=== PATIENT | female | born 1935 | race Caucasian/White ===

== ENCOUNTER 2017-03-10 16:12 | Emergency (ER) | payer OTHER ==
[~2017-03-10] VITALS: Ht 162.6 cm; Wt 67.0 kg
[~2017-03-10 16:12] MED LIST: ASPIRIN81 M1 PO; CAL-LAC100 MG PO; CALCIO DEL MAR500 MG PO; CALCIUM 500 +1 EAC1 PO; CELEBREX200 MG PO; CHILDREN'S ASPI81 M1 PO; Ceftin PO; DAILY VALUE1 EACH PO; DELTASONE DOSEPA5 MG PO; FOLIC ACID1 MG PO; FOLVITE1 MG PO; GLIPIZIDE5 MG PO; GLUCOPHAGE XR,500 MG PO; GLUCOPHAGE500 MG PO; GLUCOTROL5 MG PO; Glucotrol XL PO; HYDROCHLOROTHIA25 MG PO; LANOXIN,DIGI0.125 MG PO; LANOXIN125 MCG PO; LEVAQUIN500 MG PO; LIPITOR40 MG PO; LOPRESSOR100 M1 PO; Lactinex,Floranex PO; Levaquin PO; METHOTREXATE2.5 MG PO; MYCELEX10 MG MM; Omnicef PO; PERCOCET 5/31 TABLET PO; PREDNISONE2.5 MG PO; PREDNISONE5 MG PO; PRILOSEC20 MG PO; PRINIVIL20 MG PO; TOPROL XL50 MG PO; Tylenol Regular Stre PO; VITAMIN D5000 UNIT PO; VITAMIN D50000 UNIT PO; ZANTAC150 MG PO; ZOFRAN ODT4 MG PO; ZOFRAN ODT8 MG PO; predniSONE PO
[2017-03-10 18:46] LABS: BASOPHIL COUNT 0.1 K/uL (0-0.1); EOSINOPHIL (%) 0.4 % (0-5); HEMATOCRIT 47.7 % (36.0-46.0); IMMATURE GRANULOCYTE (%) 0.4 % (0.0-0.7); INSTRUMENT ABS NEUTROPHIL CT 7.2 K/uL; LYMPHOCYTE COUNT 1.3 K/uL (1.0-2.8); MCH 32.3 PG (29.0-34.0); MCHC 33.3 G/DL (30.0-36.0); MCV 96.8 FL (83-99); MEAN PLAT.VOLUME 10.7 uM^3 (9.5-12.4); MONOCYTE (%) 8.5 % (3-12); MONOCYTE COUNT 0.8 K/uL (0-0.8); NEUTROPHIL (%) 76.9 % (45-76); NEUTROPHIL COUNT 7.2 K/uL (1.8-6.4); PLATELET COUNT 190 K/uL (156-360); RBC DIS.WIDTH-CV 15.2 % (11.8-14.6); RBC DIS.WIDTH-SD 53.2 % (39-53); RED BLOOD COUNT 4.93 M/uL (3.80-5.20)
[2017-03-10 18:50] LABS: WHITE BLOOD COUNT 9.4 K/uL (4.1-10.2)
[2017-03-10 19:02] LABS: CHLORIDE 98 mEq/L (99-109); POTASSIUM 3.7 mEq/L (3.7-5.4); SODIUM 137 mEq/L (136-147)
[2017-03-10 19:05] LABS: GLUCOSE 120 mg/dL (70-99)
[2017-03-10 19:06] LABS: ANION GAP 14 MEQ/L (2-14)
[2017-03-10 19:08] LABS: ALKALINE PHOSPHATASE 76 IU/L (3-129); GFR ESTIMATE (CALCULATED) 57 mL/min/
[2017-03-10 19:09] LABS: UREA NITROGEN (BUN) 21 mg/dL (9-23)
[2017-03-10 19:12] LABS: LIPASE 37 U/L (1.0-51.0)
[2017-03-10 19:18] LABS: DIGOXIN 0.3 ng/mL (0.8-2.0)
[2017-03-10 19:35] LABS: ADD MIUA? NO; BILIRUBIN NEGATIVE; BLOOD NEGATIVE; COLOR YELLOW ((YELLOW)); GLUCOSE (STRIP) NEGATIVE; KETONES NEGATIVE; LEUKOCYTES NEGATIVE; NITRITE NEGATIVE; PROTEIN (STRIP) NEGATIVE; SPECIFIC GRAVITY 1.017 (1.000-1.030); UROBILINOGEN 0.2 MG/DL (0.2-1.0)
[2017-03-10] MEDS ORDERED: CARAFATE1 GM PO (22:02)
[2017-03-10] MEDS ORDERED: ZOFRAN ODT8 MG PO (22:02)
[2017-03-10] MEDS ORDERED: PRILOSEC OTC20 MG PO (22:02)
[2017-03-10 22:24] VITALS: BP 104/83
== END 2017-03-10 22:26 | disposition home or self-care (01) ==
LOC: EME 16:12
PROVIDERS: Emergency Medicine
DX: R11.2 Nausea with vomiting, unspecified (principal); R53.1 Weakness; R19.7 Diarrhea, unspecified; I10 Essential (primary) hypertension; E78.5 Hyperlipidemia, unspecified; E11.9 Type 2 diabetes mellitus without complications; I25.2 Old myocardial infarction; Z79.82 Long term (current) use of aspirin; Z79.52 Long term (current) use of systemic steroids
CPT/HCPCS: 80053; 80162; 81003; 83690; 85025; 99281; 99285; J7030